=== PATIENT | male | born 1995 | race Hispanic/Latino ===

== ENCOUNTER 2018-05-17 23:04 | Emergency (ER) | payer MEDICAID ==
[2018-05-17 23:04] VITALS: BMI 25.1
[2018-05-17 23:26] VITALS: RESP 18; TEMP 98.8; O2SAT 100
--- NOTE | 2018-05-17 23:54 | ED PDOC ---
HPI: General Adult Time Seen by Provider: 05/17/18 23:31 Chief Complaint (Nursing): Medical Clearance History Per: Patient History/Exam Limitations: no limitations Additional Complaint(s): Patient with history of drug abuse brought in by police for evaluation for incarceration. Patient has no complaints at this time, no suicidal or homicidal ideation. Denies drug abuse today or alcohol abuse. Past Medical History Reviewed: Historical Data, Nursing Documentation, Vital Signs Vital Signs: Last Vital Signs Temp 98.8 F 05/17/18 23:23 Pulse 95 H 05/17/18 23:23 Resp 18 05/17/18 23:23 BP 146/104 H 05/17/18 23:23 Pulse Ox 100 05/17/18 23:23 - Medical History PMH: Seizures (One seizure in 2014) Denies: Diabetes, Hepatitis, HIV, HTN, Sexually Transmitted Disease - Family History Family History: States: Unknown Family Hx - Immunization History Hx Tetanus Toxoid Vaccination: Yes Hx Influenza Vaccination: No Hx Pneumococcal Vaccination: No - Home Medications Home Medications: Ambulatory Orders Medication Instructions Recorded Gabapentin [Neurontin] 300 mg PO BID #60 cap 03/06/18 Nicotine 7 mg/24 hr [Nicoderm CQ] 1 patch TD DAILY #30 patch 03/06/18 traZODone [Desyrel] 100 mg PO HS PRN #30 tab 03/06/18 - Allergies Allergies/Adverse Reactions: Allergies Allergy/AdvReac Type Severity Reaction Status Date / Time No Known Allergies Allergy Verified 03/02/18 14:32 Review of Systems ROS Statement: Except As Marked, All Systems Reviewed And Found Negative Physical Exam - Reviewed Nursing Documentation Reviewed: Yes Vital Signs Reviewed: Yes - Physical Exam Appears: Positive for: Well, Non-toxic, No Acute Distress Head Exam: Positive for: ATRAUMATIC, NORMAL INSPECTION, NORMOCEPHALIC Skin: Positive for: Normal Color, Warm, DRY Eye Exam: Positive for: EOMI, Normal appearance, PERRL ENT: Positive for: Normal ENT Inspection Neck: Positive for: Normal, Painless ROM Cardiovascular/Chest: Positive for: Regular Rate, Rhythm Respiratory: Positive for: CNT, Normal Breath Sounds Gastrointestinal/Abdominal: Positive for: Normal Exam, Soft. Negative for: Tenderness Back: Positive for: Normal Inspection Extremity: Positive for: Normal ROM Neurologic/Psych: Positive for: Alert, financial aids officer II-XII, Oriented. Negative for: Motor/Sensory Deficits - ECG O2 Sat by Pulse Oximetry: 100 Pulse Ox Interpretation: Normal Medical Decision Making Medical Decision Making: Patient presenting with med and psych eval Has no complaints Hypertense currently, but likely agitated from being arrested Cleared for incarceration Well appearing Disposition - Clinical Impression Clinical Impression: Medical clearance for incarceration - Disposition Referrals: [facility] [Outside] Disposition: Routine/Home Disposition Time: 23:54 Condition: STABLE Additional Instructions: Patient is medically and psychiatrically cleared for incarceration. Instructions: General (DC) Forms: [employer] (Iranian)
[2018-05-18 00:46] VITALS: BP 129/82; PULSE 80
== END 2018-05-17 23:42 ==
LOC: H.ER 23:04
DX: Z00.8 Encounter for other general examination (principal); R45.1 Restlessness and agitation